=== PATIENT | female | born 1955 | race Caucasian/White ===

== ENCOUNTER 2018-12-13 09:37 | Day surgery (SDC) | payer OTHER ==
[2018-12-13] MEDS ORDERED: EPINEPHRINE/PF 1 MG/ML AMP ONE (10:25)
[2018-12-13] MEDS ORDERED: NS 0.9% VIAL 10 ML ONE (10:25)
[2018-12-13] MEDS ORDERED: TETRACAINE HCL 0.5% 2ML OPTH ONE (10:26)
[2018-12-13] MEDS ORDERED: CYCLOPENTOLATE 1% OPTH 2 ML ONE (10:26)
[2018-12-13] MEDS ORDERED: BALANCED SALT IRRIG PLAIN 500 ML BTL IRR ONE (10:26)
[2018-12-13] MEDS ORDERED: DUOVISC 1 KIT OPTH ONE (10:26)
[2018-12-13] MEDS ORDERED: LIDOCAINE 2% MPF 5 ML VIAL ONE (10:26)
[2018-12-13] MEDS ORDERED: BUPIVACAINE 0.25% PF 10 ML VIAL ONE (10:26)
[2018-12-13] MEDS ORDERED: TRYPAN BLUE 0.5 ML SYR OPTH ONE (10:27)
[2018-12-13] MEDS ORDERED: PHENYLEPHRINE 10% OPTH 5ML ONE (10:27)
[2018-12-13] MEDS ORDERED: NA CHLORIDE 0.9% 500 ML ONE (10:27)
[2018-12-13] MEDS ORDERED: LIDOCAINE 1% MPF 2 ML AMPULE ONE (10:27)
[2018-12-13] MEDS ORDERED: LIDOCAINE HCL/PF 3.5% OPTH GEL ONE (10:27)
[2018-12-13] MEDS ORDERED: CYCLOPENTOLATE 1% OPTH 2 ML OPTH ONE ×2 (10:28→10:38)
[2018-12-13] MEDS ORDERED: PHENYLEPHRINE 10% OPTH 5ML OPTH ONE ×2 (10:28→10:38)
[2018-12-13] MEDS ORDERED: FENTANYL CITR 100 MCG/2 ML ONE (11:31)
[2018-12-13] MEDS ORDERED: MIDAZOLAM HCL 2 MG/2 ML INJ ONE (11:31)
[2018-12-13] MEDS: MOXIFLOXACIN HCL 10 DROPS/ML **OR USE OPTH ONE ×2 (12:47→13:00)
--- NOTE | 2018-12-13 13:10 | P.BOP ---
Preoperative diagnosis: Mature cataract OS Postoperative diagnosis: Same Primary procedure: Phacoemulsification with IOL, complex OS with use of trypan blue Estimated blood loss: None Anesthesia: Local (Topical with anesthesia for cataract surgery) Complications: None Implants: SA60WF +19.5 Transferred to: Other (Day surgery) Condition: Good
--- NOTE | 2018-12-13 23:14 | OP ---
Date of Procedure: 12/13/2018 Surgeon: Lida Ocampo MD Anesthesiologist: Laura Ferreira CRNA and Nuris Shipley CRNA and David Osman MD. Preoperative Diagnosis: Mature cataract, left eye. Operation Performed: Phacoemulsification with intraocular lens implant left eye complex with use of trypan blue. Anesthesia: Per cataract surgery. Complications: None. Description Of The Procedure: In the operative room the patient was prepped and draped in the usual sterile fashion for ophthalmic surgery. A lid speculum was placed in the left eye. There was poor red reflex and a decision was made to use trypan blue. Paracentesis sites were made superiorly and inferiorly in the limbal cornea. Trypan blue was placed in the anterior chamber for 30 seconds and then balanced salt solution was used to rinse out the trypan blue from the eye. Viscoat was placed in the eye. The temporal conjunctiva was cut at the limbus with Yesi scissors. A crescent blade was used to create a tunnel incision in the temporal cornea. A keratome was used to enter the anterior chamber. Provisc was placed in the eye. A 360 degree capsulotomy was performed with a cystitome. The lens was hydrated with balanced salt solution and moved freely. The lens was removed in a stop and chop fashion. 25.9 CDE was required. Irrigation and aspiration were used to remove residual cortex. Provisc was placed in the eye and a SA60WF +19.5 diopter lens was placed in the capsular bag without complications. Irrigation and aspiration were used to remove residual Viscoat. The paracentesis sites were hydrated with balanced salt solution. The wound and paracentesis sites were inspected and found to be watertight. Intracameral Vigamox 0.07 cc was injected at the end of the procedure. The eye was irrigated with balanced salt solution. The eye was patched with a soft cotton patch and Bui metal shield and the patient was returned to day surgery in good condition. Comments: Akten was placed in the eye in Day Surgery and irrigated out of the eye with BSS in the OR. 1% preservative-free lidocaine was placed in the anterior chamber prior to trypan blue. Discharge Instructions: Ms. Allen is discharged to home in good condition and is to follow up with Dr. Ocampo in the morning. JAIME/ROBIN Voice ID: [id number] Report ID: [id number] MTDD
== END 2018-12-13 13:40 | disposition home or self-care (01) ==
LOC: OR 09:37
PROVIDERS: ATTEND Ophthalmology Retina Specialist
PROC: 08RK3JZ Replacement of Left Lens with Synthetic Substitute, Percutaneous Approach (ICD-10-PCS; principal; 2018-12-13 10:45)
DX: H25.12 Age-related nuclear cataract, left eye (principal); H25.012 Cortical age-related cataract, left eye; H25.89 Other age-related cataract; I25.10 Atherosclerotic heart disease of native coronary artery without angina pectoris; E78.00 Pure hypercholesterolemia, unspecified; I25.2 Old myocardial infarction; Z88.3 Allergy status to other anti-infective agents; Z83.3 Family history of diabetes mellitus
CPT/HCPCS: 66982; J0171; J2250; J3010; J2001